=== PATIENT | female | born 1955 | race Caucasian/White ===

== ENCOUNTER 2021-02-02 17:14 | Emergency (ER) | payer MEDICARE ==
[~2021-02-02] VITALS: Ht 162.6 cm; Wt 62.4 kg
[2021-02-02] MEDS ORDERED: oxymetazoline 15 ML nasal spray NS ONE (18:05)
--- NOTE | 2021-02-02 18:05 | NUR ---
PATIENT PROVIDED ICE PACK AND APPLIED TO NOSE AND ABOVE
[2021-02-02] MEDS ORDERED: silver nitrate applicator stick TP ONE (18:20)
--- NOTE | 2021-02-02 18:22 | NUR ---
DR MONTELONGO IN ROOM ADMINISTERING AFRIN AND APPLYING SILVER NITRATE STICKS
[2021-02-02] MEDS ORDERED: bacitracin 15gm ointment TP ONE ×2 (18:25→19:30)
[2021-02-02 19:43] VITALS: BP 160/78
== END 2021-02-02 19:46 | disposition home or self-care (01) ==
LOC: ER 17:16
DX: R04.0 Epistaxis (principal); I10 Essential (primary) hypertension; Z87.11 Personal history of peptic ulcer disease; Z90.710 Acquired absence of both cervix and uterus; Z90.49 Acquired absence of other specified parts of digestive tract
CPT/HCPCS: 30901; 99284

== ENCOUNTER 2021-05-21 11:49 | Emergency (ER) | payer MEDICARE ==
[~2021-05-21] VITALS: Ht 165.1 cm; Wt 62.7 kg
[2021-05-21 15:28] LABS: BASOPHILS # (AUTO) 0.1 X10'3 (0-0.2); BASOPHILS % (AUTO) 0.6 % (0-1); EOSINOPHILS # (AUTO) 0.1 X10'3 (0-0.9); EOSINOPHILS % (AUTO) 1.1 % (0-6); HEMATOCRIT 34.9 % (35.0-45.0); HEMOGLOBIN 12.1 g/dl (12.0-16.0); LYMPHOCYTES # (AUTO) 1.3 X10'3 (1.1-4.8); LYMPHOCYTES % (AUTO) 14.5 % (21-51); MEAN CORPUSCULAR HEMOGLOBIN 31.3 PG (27.0-31.0); MEAN CORPUSCULAR HGB CONC 34.8 g/dL (33.0-36.5); MONOCYTES % (AUTO) 10.9 % (2-12); NEUTROPHILS # (AUTO) 6.7 X10'3 (1.8-7.7); NEUTROPHILS % (AUTO) 72.9 % (42-75); PLATELET COUNT 202 X10'3 (140-440); RED BLOOD COUNT 3.88 X10'6 (4.20-5.60); RED CELL DISTRIBUTION WIDTH 15.8 % (11.5-14.5); WHITE BLOOD COUNT 9.2 X10'3 (4.5-11.0)
[2021-05-21 15:42] LABS: ALANINE AMINOTRANSFERASE 190 U/L (12-78); ALBUMIN/GLOBULIN RATIO 0.7 (1.1-1.5); ALKALINE PHOSPHATASE 190 IU/L (46-116); ANION GAP 11 (8-16); ASPARTATE AMINO TRANSFERASE 197 U/L (10-37); BILIRUBIN,TOTAL 2.6 MG/DL (0.1-1.0); BLOOD UREA NITROGEN 11 MG/DL (7-18); BUN/CREATININE RATIO 8.9 (6.6-38.0); CALCIUM 8.7 MG/DL (8.5-10.1); CHLORIDE 101 MMOL/L (99-107); CREATININE 1.23 MG/DL (0.40-0.90); GLUCOSE 256 MG/DL (70-104); SODIUM 138 MMOL/L (135-145); TOTAL PROTEIN 7.6 G/DL (6.4-8.2); eGFR 43 ML/MIN
[2021-05-21 15:43] LABS: POTASSIUM 2.3 MMOL/L (3.5-5.1)
[2021-05-21] MEDS ORDERED: ondansetron/PF 4mg/2ml inj IV ONE (16:20)
[2021-05-21] MEDS ORDERED: potassium Cl 20 mEq SR tablet PO STA ×2 (16:20→20:51)
[2021-05-21] MEDS: potassium CL 10mEq/100ml bag 100 ML IV SCH ×3 (16:28→18:23)
[2021-05-21] MEDS ORDERED: normal saline 1000ML IV soln IVB ONE (17:00)
[2021-05-21 17:32] LABS: MAGNESIUM 2.4 MG/DL (1.5-2.4); PHOSPHORUS 1.5 MG/DL (2.3-4.5)
[2021-05-21 18:52] LABS: UA COLLECTION TYPE NON-SPECIFIED
[2021-05-21 18:54] LABS: CLARITY,URINE CLOUDY (Clear); COLOR,URINE YELLOW (Yellow); GLUCOSE, URINE 250 mg/dl (Neg); KETONES,URINE NEGATIVE (Neg); NITRITES, URINE NEGATIVE (Neg); OCCULT BLOOD,URINE NEGATIVE (Neg); PROTEIN,URINE 300 mg/dl (Neg)
[2021-05-21 18:55] LABS: BACTERIA,URINE 3+ /HPF (Neg); LEUKOCYTE ESTERASE ,URINE LARGE (Neg); MUCUS STRANDS FEW /LPF (Neg); RBC,URINE 0-2 /HPF (0-2); SQUAMOUS EPITHELIAL CELL,UR FEW /LPF (FEW); UROBILINOGEN,URINE >=8.0 E.U/dL (0.2-1.0); WBC,URINE 30-50 /HPF (0-4)
[2021-05-21] MEDS ORDERED: INSU100I31 SUBCUT (20:12)
[2021-05-21] MEDS ORDERED: CefTRIAXone 2gm/D5W 50ml BAG 50 ML IV ONE (20:20)
[2021-05-21 20:23] LABS: ALBUMIN 2.5 G/DL (3.4-5.0); ANION GAP 10 (8-16); BLOOD UREA NITROGEN 11 MG/DL (7-18); BUN/CREATININE RATIO 10.6 (6.6-38.0); CALCIUM 8.1 MG/DL (8.5-10.1); CHLORIDE 106 MMOL/L (99-107); CREATININE 1.04 MG/DL (0.40-0.90); GLUCOSE 177 MG/DL (70-104); SODIUM 140 MMOL/L (135-145); TOTAL CARBON DIOXIDE 24.1 MMOL/L (24-32); eGFR 53 ML/MIN
[2021-05-21 20:43] LABS: POTASSIUM 2.7 MMOL/L (3.5-5.1)
[2021-05-21] MEDS ORDERED: CEPH-585 PO (20:55)
[2021-05-21] MEDS ORDERED: POTA20TA19 PO (20:55)
[2021-05-21 22:12] VITALS: BP 126/78
== END 2021-05-21 21:43 | disposition home or self-care (01) ==
LOC: ER 11:50
DX: E87.6 Hypokalemia (principal); N39.0 Urinary tract infection, site not specified; R53.1 Weakness; R53.83 Other fatigue; I10 Essential (primary) hypertension; E11.9 Type 2 diabetes mellitus without complications; Z87.11 Personal history of peptic ulcer disease; Z90.710 Acquired absence of both cervix and uterus; Z90.89 Acquired absence of other organs; Z98.890 Other specified postprocedural states; Z72.89 Other problems related to lifestyle; Z79.4 Long term (current) use of insulin; Z79.2 Long term (current) use of antibiotics; Z79.899 Other long term (current) drug therapy
CPT/HCPCS: 36415; 80048; 80053; 81001; 83735; 84100; 85025; 87077; 87088; 87186; 96365; 96366; 96368; 96375; 99285; J0696; J2405; J3480; J7030